=== PATIENT | male | born 1945 | race Caucasian/White ===

== ENCOUNTER 2018-09-23 21:21 | Emergency (ER) | payer MEDICARE, BC ==
[2018-09-23] MEDS ORDERED: Lidocaine 1% w/Epinephrine 1:100K 20 ML VIAL ONE (21:49)
[2018-09-23] MEDS ORDERED: Adacel (T-DAP) 0.5 ML SYRINGE ONE (22:01)
[2018-09-23] MEDS ORDERED: Bacitracin Zinc 1 Packet ONE (22:59)
== END 2018-09-23 23:15 | disposition home or self-care (01) ==
LOC: ERS 21:21
DX: S61.411A Laceration without foreign body of right hand, initial encounter (principal); E78.5 Hyperlipidemia, unspecified; I10 Essential (primary) hypertension; Z79.899 Other long term (current) drug therapy; W45.8XXA Other foreign body or object entering through skin, initial encounter
CPT/HCPCS: 12001; 90471; 90715; J2001

== ENCOUNTER 2025-06-21 08:56 | Outpatient (CLI) | payer MEDICARE, BC | END 2025-06-21 08:57 | disposition home or self-care (01) | LOC: ULT 08:56 | PROVIDERS: ATTEND Family Medicine | DX: Z13.6 Encounter for screening for cardiovascular disorders (principal) | CPT/HCPCS: 76706 ==